=== PATIENT | female | born 1945 | race Caucasian/White ===

== ENCOUNTER 2020-01-30 11:12 | Emergency (ER) | payer BC ==
[~2020-01-30] VITALS: Ht 162.6 cm; Wt 56.2 kg
--- NOTE | 2020-01-30 11:17 | NUR ---
Dr. Godfrey at bedside for MSE
[2020-01-30] MEDS ORDERED: SWABABLE VALVE TRANSFER SET EA MC ONE (11:30)
[2020-01-30] MEDS ORDERED: IV NORMAL SALINE 250 ML IV ONE (11:30)
[2020-01-30] MEDS ORDERED: IOHEXOL 300MG/ML 100 ML INFUS..BTL ONE (11:30)
[2020-01-30] MEDS: IV NORMAL SALINE 1000 ML BAG IV ONE (11:40)
[2020-01-30] MEDS: ONDANSETRON 4 MG/2 ML VIAL IV ONE (11:43)
[2020-01-30] MEDS ORDERED: ONDANSETRON 4 MG/2 ML VIAL ONE (11:44)
[2020-01-30 11:48] LABS: BASOPHILS % (AUTO) 0.3 % (0.0-2.0); EOSINOPHILS % (AUTO) 0.1 % (0.0-7.0); HEMATOCRIT 43.9 % (31.2-41.9); HEMOGLOBIN 14.5 g/dL (10.9-14.3); LYMPHOCYTES # (AUTO) 0.8 K/uL (20.0-40.0); LYMPHOCYTES % (AUTO) 7.8 % (20.5-51.5); MEAN CORPUSCULAR HGB CONC 33 g/dL (32.3-35.6); MONOCYTES # (AUTO) 0.5 K/uL (2.0-10.0); MONOCYTES % (AUTO) 4.4 % (0.0-11.0); NEUTROPHILS % (AUTO) 87.4 % (38.5-71.5); PLATELET COUNT (AUTO) 168 K/uL (179-408); RED BLOOD CELL COUNT(AUTO) 4.99 MIL/uL (3.63-4.92); WHITE BLOOD COUNT (AUTO) 10.3 K/uL (3.8-11.8)
[2020-01-30 11:57] LABS: CREATININE 1.3 mg/dL (0.6-1.3); POTASSIUM 4.3 mmol/L (3.5-5.1)
[2020-01-30 12:03] LABS: BILIRUBIN,DIRECT 0.1 mg/dL (0.0-0.2); BILIRUBIN,TOTAL 0.7 mg/dL (0.2-1.0); TOTAL PROTEIN, SERUM 8.4 g/dL (6.4-8.2)
--- NOTE | 2020-01-30 12:05 | NUR ---
Patient taken to CT scan in stable condition
--- NOTE | 2020-01-30 12:28 | NUR ---
Patient back from CT scan
[2020-01-30] MEDS ORDERED: MORPHINE SULFATE 2 MG/1 ML DISP.SYRIN ONE (12:38)
[2020-01-30] MEDS ORDERED: KETOROLAC TROMETHAMINE 15 MG INJ ONE (13:09)
[2020-01-30] MEDS: KETOROLAC TROMETHAMINE 15 MG INJ IVP ONE (13:10)
[2020-01-30 13:14] LABS: *BILIRUBIN,URIN NEGATIVE (NEGATIVE); *CLARITY,URINE CLEAR (CLEAR); *COLOR,URINE LIGHT YELLOW (YELLOW); *KETONES,URINE NEGATIVE (NEGATIVE); *UROBILINOGEN,URINE 0.2 E.U./dl (NORMAL); LEUKOCYTE ESTERASE ,URINE NEGATIVE (NEGATIVE); NITRITE, URINE NEGATIVE (NEGATIVE); UGLUCOSE NEGATIVE (NEGATIVE)
[2020-01-30 13:22] LABS: *BLOOD, URINE TRACE (NEGATIVE)
[2020-01-30] MEDS: MORPHINE SULFATE 2 MG/1 ML DISP.SYRIN IV ONE (13:30)
--- NOTE | 2020-01-30 13:50 | NUR ---
IV removed. Catheter intact and site benign. Pressure and 4x4 gauze applied to site. No bleeding noted. Patient discharged to home in stable condition. Written and verbal after care instructions given. Patient verbalizes understanding of instructions. Stressed follow up or return to ER for worsening s/s. Patient ambulating with steady gait. NAD noted
[2020-01-30 14:00] VITALS: BP 135/69
[2020-01-30 18:05] LABS: BACTERIA,URINE NONE SEEN /HPF (NONE SEEN); RBC,URINE 0-3 /HPF (0-3); SQUAMOUS EPITHELIAL CELL,UR FEW /HPF (NONE SEEN); WBC,URINE 0-3 /HPF (0-3)
== END 2020-01-30 13:50 | disposition home or self-care (01) ==
LOC: ER 11:12
DX: N13.2 Hydronephrosis with renal and ureteral calculous obstruction (principal); Z90.710 Acquired absence of both cervix and uterus; R11.2 Nausea with vomiting, unspecified; Z82.49 Family history of ischemic heart disease and other diseases of the circulatory system; Z20.828 Contact with and (suspected) exposure to other viral communicable diseases
CPT/HCPCS: 36415; 74177; 80048; 80076; 81001; 83605; 83690; 85025; 87040 ×2; 87086; 87426; 93005; 96361; 96374; 96375; 99285; J1885; J2405; Q9967; U0003; J2270; J7030; J7050